=== PATIENT | female | born 1990 | race Caucasian/White ===

== ENCOUNTER 2016-11-05 21:02 | Emergency (ER) | payer BC, OTHER ==
[2016-11-05 21:46] VITALS: BP 94/73
[2016-11-05] MEDS ORDERED: Cephalexin CAP* 500 MG PO ONE (22:57)
[2016-11-05] MEDS ORDERED: Ibuprofen TAB* 600 MG PO ONE (22:58)
[2016-11-05] MEDS ORDERED: HYDROcodone/ACETAMIN 5-325 MG* 1 TAB PO ONE (22:59)
--- NOTE | 2016-11-05 23:06 | UC ---
Skin Complaint HPI - HPI Summary HPI Summary: 2 week history of recurrent abscess right upper inner thigh. Hx of I+ D of abscess one year ago, no hx of MRSA. Took a 1 week course of cephalexin without improvement. No drainage from wound. Not using analgesics because nothing works for her. - History of Current Complaint Chief Complaint: UCSkin Time Seen by Provider: 11/05/16 22:49 Stated Complaint: LEG ABSCESS Hx Obtained From: Patient Hx Last Menstrual Period: 10/28/16 Onset/Duration: Gradual Onset, Lasting Days - 14 Skin Exposure Onset/Duration: Weeks Ago Onset Severity: Moderate Current Severity: Moderate Pain Intensity: 10 Pain Scale Used: 0-10 Numeric Location: Discrete - right upper medial thigh Aggravating: Clothing, Touch Alleviating: Nothing Associated Signs & Symptoms: Positive: Negative Similar Episode/Dx as: abscess - Allergy/Home Medications Allergies/Adverse Reactions: Allergies Allergy/AdvReac Type Severity Reaction Status Date / Time Penicillins Allergy Severe Nausea And Verified 11/05/16 21:46 Vomiting Review of Systems Constitutional: Negative Skin: Other - forming abscess right upper inner thigh. Eyes: Negative ENT: Negative Respiratory: Negative Cardiovascular: Negative Gastrointestinal: Negative Genitourinary: Negative Motor: Negative Neurovascular: Negative Musculoskeletal: Negative Neurological: Negative Psychological: Other - angry All Other Systems Reviewed And Are Negative: Yes PMH/Surg Hx/FS Hx/Imm Hx Previously Healthy: Yes - obese Endocrine History Of: Denies: Diabetes, Thyroid Disease Cardiovascular History Of: Denies: Cardiac Disorders, Hypertension Respiratory History Of: Denies: COPD, Asthma GI/ History Of: Denies: Ulcer - Surgical History Surgical History: Yes Surgery Procedure, Year, and Place: Left Knee Arthroscopy, 2009 - Family History Known Family History: Positive: Other - declined to give family history. - Social History Occupation: Employed Full-time Lives: With Family Alcohol Use: None Substance Use Type: None Smoking Status (MU): Current Every Day Smoker Type: Cigarettes Amount Used/How Often: 1/2-1 PPD Length of Time of Smoking/Using Tobacco: 9 YRS Have You Smoked in the Last Year: Yes Physical Exam Triage Information Reviewed: Yes Appearance: Pain Distress - moderate., Obese Vital Signs: Initial Vital Signs Temp 98.5 F 11/05/16 21:40 Pulse 88 11/05/16 21:40 Resp 16 11/05/16 21:40 BP 94/73 11/05/16 21:40 Pulse Ox 100 11/05/16 21:40 Vital Signs Reviewed: Yes Respiratory Exam: Normal Cardiovascular Exam: Normal Psychological Exam: Other - irritable and angry. Insisted that she should have I +D tonight, when the area is not fluctuant and ready for drainage. Has overlying cellulitis. Skin Exam: Other - 10 x 8 cm of erythema with firm nodular feeling. Deep abscess with overlying erythema. No pointing. Advised not ready for I+D at this time. Course/Dx - Course Course Of Treatment: advised antibiotics, analgesics, but left the department stating that she would find a second opinion. - Differential Diagnoses - Skin Complaint Differential Diagnoses: Abscess, Cellulitis - Diagnoses Provider Diagnoses: cellulitis and abscess. Discharge - Discharge Plan Condition: Stable Disposition: AGAINST MEDICAL ADVICE
== END 2016-11-05 23:05 | disposition left against medical advice (07) ==
LOC: UCCORT 21:02
DX: L02.415 Cutaneous abscess of right lower limb (principal); L03.115 Cellulitis of right lower limb; Z88.0 Allergy status to penicillin; F17.210 Nicotine dependence, cigarettes, uncomplicated
CPT/HCPCS: 99212; G0463

== ENCOUNTER 2017-02-01 15:18 | Emergency (ER) | payer BC, OTHER ==
[2017-02-01 15:46] VITALS: BP 113/64
[2017-02-01] MEDS ORDERED: Ibuprofen TAB* 400 MG PO ONE (16:20)
--- NOTE | 2017-02-01 16:27 | ED ---
Lower Extremity - HPI Summary HPI Summary: Pt here w/ Lt ankle injury prior to arrival. Was walking downstairs, using her phone, when she tripped and twisted her ankle. Has acute swelling and bruising over the lateral aspect now. Pain w/ movement of ankle and cannot weight bear. Denies numbness, tingling, weakness. Denies knee pain, foot pain, toe pain. She did not fall and hit other areas of her body, including head. Has not taken anything yet for her pain. - History of Current Complaint Chief Complaint: UCLowerExtremity Stated Complaint: LEFT ANKLE PAIN Time Seen by Provider: 02/01/17 15:45 Hx Obtained From: Patient Hx Last Menstrual Period: pt states having and IUD LM: - Allergies/Home Medications Allergies/Adverse Reactions: Allergies Allergy/AdvReac Type Severity Reaction Status Date / Time Penicillins Allergy Intermediate Nausea And Verified 02/01/17 15:46 Vomiting PMH/Surg Hx/FS Hx/Imm Hx Previously Healthy: Yes Endocrine/Hematology History: Denies: Hx Anticoagulant Therapy, Hx Blood Disorders, Hx Diabetes, Hx Thyroid Disease, Hx Unexplained Bleeding Cardiovascular History: Denies: Hx Hypertension Respiratory History: Denies: Hx Asthma, Hx Chronic Obstructive Pulmonary Disease (COPD) GI History: Denies: Hx Ulcer History: Reports: Other Problems/Disorders - abnormal periods (menorrhagia ) - "bleeding past 30 days" - has IUD in place - Surgical History Surgery Procedure, Year, and Place: Left Knee Arthroscopy, 2009 Infectious Disease History: No Infectious Disease History: Denies: Hx Hepatitis, Hx Human Immunodeficiency Virus (HIV), History Other Infectious Disease, Traveled Outside the [place] in Last 30 Days - Family History Known Family History: Positive: Other - GM w/ endometrial CA - Social History Occupation: Employed Full-time - Chemist Food at [employer] Lives: With Family Alcohol Use: None Hx Substance Use: No Substance Use Type: Reports: None Smoking Status (MU): Current Every Day Smoker Type: Cigarettes Amount Used/How Often: 1 PPD Length of Time of Smoking/Using Tobacco: since age 18 Have You Smoked in the Last Year: Yes Review of Systems Negative: Chest Pain Negative: Shortness Of Breath Negative: Abdominal Pain Positive: no symptoms reported Musculoskeletal: Other - see HPI Positive: Bruising - see HPI Neurological: Negative Psychological: Normal All Other Systems Reviewed And Are Negative: Yes Physical Exam Triage Information Reviewed: Yes Vital Signs On Initial Exam: Initial Vitals Temp Pulse Resp BP Pulse Ox 98.9 F 88 20 113/64 100 02/01/17 15:40 02/01/17 15:40 02/01/17 15:40 02/01/17 15:40 02/01/17 15:40 Vital Signs Reviewed: Yes Appearance: Positive: Well-Appearing, No Pain Distress, Well-Nourished Skin: Positive: Warm, Dry - precious edema w/ superficial abrasion, ecchymosis over Lt lateral ankle Head/Face: Positive: Normal Head/Face Inspection Eyes: Positive: Normal, EOMI ENT: Positive: Hearing grossly normal, Pharynx normal Respiratory/Lung Sounds: Positive: Breath Sounds Present Cardiovascular: Positive: Normal, Pulses are Symmetrical in both Upper and Lower Extremities Musculoskeletal: Positive: Pain @ - Lt lateral area of edema is TTP - MT's, tibia/fibula, knees and toes are NTTP; can move toes and knee w/o difficulty; can plantar flex w/o pain, worse w/ inversion and dorsiflexion Neurological: Positive: Normal, Sensory/Motor Intact, Alert, Oriented to Person Place, Time, CN Intact II-III Psychiatric: Positive: Normal Diagnostics - Vital Signs Vital Signs Temp Pulse Resp BP Pulse Ox 02/01/17 15:40 98.9 F 88 20 113/64 100 - Laboratory Lab Statement: Any lab studies that have been ordered have been reviewed, and results considered in the medical decision making process. Lower Extremity Course/Dx - Diagnoses Provider Diagnoses: Left ankle sprain Discharge - Discharge Plan Condition: Stable Disposition: HOME Patient Education Materials: Ankle Sprain (ED), Ankle Stirrup Splint (ED), Crutch Instructions (ED) Forms: *Work Release Referrals: Oli TAMAYO,Phuong Vincent [Primary Care Provider] - Additional Instructions: Rest, ice, elevate and compress with MILLER wrap. Use crutches to avoid weight bearing - may advance as tolerated May continue ibuprofen with food as needed for pain and swelling Follow-up with PCP if symptoms persist.
--- NOTE | 2017-02-01 16:48 | RAD ---
HISTORY: Left ankle injury, pain COMPARISONS: None VIEWS: 3, Frontal, lateral, and oblique views of the left ankle FINDINGS: BONE DENSITY: Normal. BONES: There is no displaced fracture. There are small calcaneal enthesophytes JOINTS: There is no arthropathy. ALIGNMENT: There is no dislocation. SOFT TISSUES: There is circumferential soft tissue swelling OTHER FINDINGS: None. IMPRESSION: SOFT TISSUE SWELLING. NO ACUTE OSSEOUS INJURY. IF SYMPTOMS PERSIST, RECOMMEND REPEAT IMAGING.
== END 2017-02-01 17:37 | disposition home or self-care (01) ==
LOC: UCCORT 15:18
DX: S93.402A Sprain of unspecified ligament of left ankle, initial encounter (principal); X50.1XXA Overexertion from prolonged static or awkward postures, initial encounter; Y93.9 Activity, unspecified; Y92.9 Unspecified place or not applicable; Z88.0 Allergy status to penicillin; F17.210 Nicotine dependence, cigarettes, uncomplicated
CPT/HCPCS: 99213; A9270-GY; G0463

== ENCOUNTER 2017-06-28 09:30 | Emergency (ER) | payer BC, OTHER ==
[2017-06-28 09:57] VITALS: BP 104/66
--- NOTE | 2017-06-28 10:48 | UC ---
Skin Complaint HPI - History of Current Complaint Chief Complaint: UCSkin Time Seen by Provider: 06/28/17 10:10 Stated Complaint: LEFT LEG SKIN COMPLAINT Hx Last Menstrual Period: 06/21/17 - Allergy/Home Medications Allergies/Adverse Reactions: Allergies Allergy/AdvReac Type Severity Reaction Status Date / Time Penicillins Allergy Intermediate Nausea And Verified 06/28/17 09:59 Vomiting Home Medications: Home Medications Ibuprofen TAB* [Motrin TAB* 800 MG] 800 mg PO ONCE PRN 06/28/17 [History Confirmed 06/28/17] PMH/Surg Hx/FS Hx/Imm Hx Other History Of: Negative For: Anticoagulant Therapy - Surgical History Surgical History: Yes Surgery Procedure, Year, and Place: Left Knee Arthroscopy, 2009 - Family History Known Family History: Positive: Other - GM w/ endometrial CA - Social History Alcohol Use: None Substance Use Type: None Smoking Status (MU): Heavy Every Day Tobacco Smoker Type: Cigarettes Amount Used/How Often: 1 PPD Length of Time of Smoking/Using Tobacco: since age 18 Have You Smoked in the Last Year: Yes Physical Exam Vital Signs: Initial Vital Signs Temp 98.6 F 06/28/17 09:45 Pulse 84 06/28/17 09:45 Resp 20 06/28/17 09:45 BP 104/66 06/28/17 09:45 Course/Dx - Course Course Of Treatment: hx obtained, exam performed meds reviewed, I and D of left thigh abcess. changes ABX to doxycyline and packed wound, recommend follow up in 2 days. - Differential Diagnoses - Skin Complaint Differential Diagnoses: Abscess - Diagnoses Provider Diagnoses: hidradentitis supporitiva Discharge - Discharge Plan Condition: Stable Disposition: HOME Prescriptions: DOXYcycline CAP(*) [DOXYcycline 100MG CAP(*)] 100 mg PO BID #28 cap Patient Education Materials: Hidradenitis Suppurativa (ED) Forms: *Work Release Additional Instructions: 1. stop the keflex start the doxycyline for 2 weeks 2. Follow up with your doctor or here is 2 days to make sure that the wound is improving. 3. MOnitor for fever 4. Wound culture was obtained, results take 2-3 days 5. I am giving you a referral to a soybean grower for this reoccuring issue. 6. Ibupforen for pain and fever
== END 2017-06-28 10:53 | disposition home or self-care (01) ==
LOC: UCCORT 09:30
DX: L73.2 Hidradenitis suppurativa (principal)
CPT/HCPCS: 10060; 87070; 87076; 87077; 87186; 87205; 87640; 87641; 99212; G0463

== ENCOUNTER 2018-11-17 09:15 | Emergency (ER) | payer BC, OTHER ==
[2018-11-17] MEDS ORDERED: EPINEPHRINE 1 MG/ML 1 ML VIAL IM ONE (09:18)
[2018-11-17] MEDS ORDERED: methylPREDNISolone 125 MG* 2 ML VIAL IV ONE (09:20)
[2018-11-17] MEDS ORDERED: Famotidine IV* 10 MG/ML 2 ML (20 mg) IV SLOW PU ONE (09:20)
[2018-11-17] MEDS ORDERED: diPHENhydraMINE IV* 50 MG/ML 1 ml VIAL (BENADRYL) IV ONE (09:21)
--- NOTE | 2018-11-17 09:27 | UC ---
Allergic Reaction HPI - HPI Summary HPI Summary: 28-year-old woman comes in with a chief complaint of allergic reaction difficulty breathing. Started having some rash last night this morning of having a lot worse having a hard time breathing she comes in to clinic in respiratory extremis. - History of Current Complaint Stated Complaint: TROUBLE BREATHING Time Seen by Provider: 11/17/18 09:18 Hx Last Menstrual Period: 06/21/17 - Allergies/Home Medications Allergies/Adverse Reactions: Allergies Allergy/AdvReac Type Severity Reaction Status Date / Time MS Penicillins [Penicillins] Allergy Intermediate Nausea And Verified 11/17/18 09:31 Vomiting PMH/Surg Hx/FS Hx/Imm Hx Previously Healthy: Yes Other History Of: Negative For: Anticoagulant Therapy - Surgical History Surgical History: Yes Surgery Procedure, Year, and Place: Left Knee Arthroscopy, 2009 - Family History Known Family History: Positive: Other - GM w/ endometrial CA - Social History Alcohol Use: None Substance Use Type: None Smoking Status (MU): Heavy Every Day Tobacco Smoker Type: Cigarettes Amount Used/How Often: 1 PPD Length of Time of Smoking/Using Tobacco: since age 18 Have You Smoked in the Last Year: Yes Review of Systems All Other Systems Reviewed And Are Negative: Yes Constitutional: Positive: Other - SEE HPI Skin: Positive: Rash - DIFFUSE HIVES Eyes: Positive: Negative ENT: Positive: Negative Respiratory: Positive: Shortness Of Breath Cardiovascular: Positive: Negative Gastrointestinal: Positive: Negative Motor: Positive: Negative Neurovascular: Positive: Negative Musculoskeletal: Positive: Negative Neurological: Positive: Negative Psychological: Positive: Negative Is Patient Immunocompromised?: No Physical Exam Triage Information Reviewed: Yes Appearance: Well-Nourished, Ill-Appearing - RESPIRATORY EXTREMIS Vital Signs Reviewed: Yes Eye Exam: Normal Eyes: Positive: Conjunctiva Clear ENT: Positive: Pharyngeal erythema, Nasal congestion Neck exam: Normal Neck: Positive: Supple Respiratory: Positive: Other: - RAPID BREATHING, GOOD AIR FLOW Cardiovascular: Positive: Tachycardia Musculoskeletal Exam: Normal Musculoskeletal: Positive: Strength Intact, ROM Intact Neurological Exam: Normal Neurological: Positive: Alert, Muscle Tone Normal Psychological Exam: Normal Psychological: Positive: Age Appropriate Behavior Skin: Positive: Rashes - DIFFUSE ERYTHEMA Allergic Reaction Course/Dx - Course Course Of Treatment: Upon initial presentation to clinic patient appeared to be having allergic reaction. Patient was given IM epinephrine and IV Benadryl Pepcid and Solu-Medrol. Patient found have a fever. She's been sick for about a week. The cause of the rash and difficulty breathing Maalox he be infection rather than allergic reaction. Due to the severity of the illness patient is transferred to the emergency department by ambulance. - Differential Dx/Diagnosis Provider Diagnosis: Respiratory distress, Rash, Fever Discharge - Sign-Out/Discharge Documenting (check all that apply): Patient Departure All imaging exams completed and their final reports reviewed: No Studies - Discharge Plan Condition: Stable Disposition: TRANS HIGHER LVL OF CARE FAC Referrals: Oli TAMAYO,Phuong Vincent [Primary Care Provider] - - Billing Disposition and Condition Condition: STABLE Disposition: Trans Higher Lvl of Care Fac
[2018-11-17] MEDS ORDERED: NS 0.9% 1000 ML** 1,000 ML IV ONE (09:28)
[2018-11-17 09:43] VITALS: BP 126/82
== END 2018-11-17 09:40 | disposition short-term general hospital (02) ==
LOC: UCEAST 09:15
DX: R21 Rash and other nonspecific skin eruption (principal); R50.9 Fever, unspecified; R06.03 Acute respiratory distress; F17.210 Nicotine dependence, cigarettes, uncomplicated; Z88.0 Allergy status to penicillin
CPT/HCPCS: 99203; G0463; J1200; J2930

== ENCOUNTER 2018-11-17 09:59 | Emergency (ER) | payer SELFPAY ==
[2018-11-17] MEDS ORDERED: Ketorolac INJ* 30 MG/ML 1 ML VIAL IV PUSH ONE (10:10)
[2018-11-17] MEDS ORDERED: Albuterol/Ipratropium NEB.SOL* Albuterol 2.5 MG/Ipratropium 0.5 MG 3 ML INH ONE (10:10)
[2018-11-17] MEDS ORDERED: NS 0.9% 1000 ML** 1,000 ML IV ONE (10:10)
[2018-11-17] MEDS ORDERED: DiMENhydriNATE IV* 50 MG/ML VIAL IV PUSH ONE (10:11)
[2018-11-17] MEDS ORDERED: Acetaminophen TAB* 325 MG PO ONE (10:11)
--- NOTE | 2018-11-17 10:15 | ED ---
Influenza-Like Illness - HPI Summary HPI Summary: 28-year-old otherwise healthy female presents with flushing/rash that began this morning as well as cough, congestion, sore throat. Patient was diagnosed with influenza type a approximately 1 week ago was not treated with any medications. She did not receive the vaccine. She is a former smoker having quit only 2 weeks ago. She reports wheezing and tightness in her chest today as well. She was noted to have fever on arrival here. Her 5-year-old daughter is also similarly ill. She denies any urinary symptoms, vaginal discharge, any new foreign bodies. She has an intrauterine device and does not get her period with it. She has no history of asthma or COPD. - History of Current Complaint Chief Complaint: EDAllergicReaction Time Seen by Provider: 11/17/18 10:05 Hx Obtained From: Patient - Allergy/Home Medications Allergies/Adverse Reactions: Allergies Allergy/AdvReac Type Severity Reaction Status Date / Time MS Penicillins [Penicillins] Allergy Intermediate Nausea And Verified 11/17/18 09:31 Vomiting PMH/Surg Hx/FS Hx/Imm Hx Previously Healthy: Yes - diagnosed influenza a within the week Endocrine/Hematology History: Denies: Hx Anticoagulant Therapy, Hx Blood Disorders, Hx Diabetes, Hx Thyroid Disease, Hx Unexplained Bleeding Cardiovascular History: Denies: Hx Hypertension Respiratory History: Denies: Hx Asthma, Hx Chronic Obstructive Pulmonary Disease (COPD) GI History: Denies: Hx Ulcer History: Reports: Other Problems/Disorders - abnormal periods (menorrhagia ) - "bleeding past 30 days" - has IUD in place - Surgical History Surgery Procedure, Year, and Place: Left Knee Arthroscopy, 2009 Infectious Disease History: Yes - known influenza A Infectious Disease History: Denies: Hx Hepatitis, Hx Human Immunodeficiency Virus (HIV), History Other Infectious Disease, Traveled Outside the [place] in Last 30 Days - Family History Known Family History: Positive: Other - GM w/ endometrial CA; daughter with influenza - Social History Lives: With Family Alcohol Use: None Hx Substance Use: No Substance Use Type: Reports: None Smoking Status (MU): Heavy Every Day Tobacco Smoker Type: Cigarettes Amount Used/How Often: 1 PPD Length of Time of Smoking/Using Tobacco: since age 18 Have You Smoked in the Last Year: Yes Review of Systems Positive: Fever, Chills Positive: Sore Throat, Nasal Discharge Positive: Other - chest tightness Positive: Shortness Of Breath, Cough Gastrointestinal: Negative Negative: dysuria, discharge, frequency, hematuria Positive: Myalgia Positive: Rash All Other Systems Reviewed And Are Negative: Yes Physical Exam Triage Information Reviewed: Yes Vital Signs On Initial Exam: Initial Vitals Temp Pulse Resp BP Pulse Ox 100 F 113 24 130/78 95 11/17/18 10:02 11/17/18 10:02 11/17/18 10:02 11/17/18 10:02 11/17/18 10:02 Vital Signs Reviewed: Yes Appearance: Positive: No Pain Distress, Well-Nourished, Ill-Appearing Skin: Positive: Dry, Other Eyes: Positive: Normal, EOMI ENT: Positive: Nasal congestion, Nasal drainage, TMs normal. Negative: Sinus tenderness Neck: Positive: Supple, Nontender Respiratory/Lung Sounds: Positive: Wheezes. Negative: Rales, Rhonchi Cardiovascular: Positive: Tachycardia Abdomen Description: Positive: Nontender, Soft Musculoskeletal: Positive: Normal, Strength/ROM Intact Neurological: Positive: Normal, Sensory/Motor Intact, Alert, Oriented to Person Place, Time Psychiatric: Positive: Normal AVPU Assessment: Alert Diagnostics - Vital Signs Vital Signs Temp Pulse Resp BP Pulse Ox 11/17/18 10:02 100 F 113 24 130/78 95 - Laboratory Lab Statement: Any lab studies that have been ordered have been reviewed, and results considered in the medical decision making process. - Radiology cxr Radiology Interpretation Completed By: Radiologist - Some findings of obstructive lung disease but no other acute inflammatory process Re-Evaluation - Re-Evaluation First Eval Re-Evaluation Time: 11:45 Change: Improved Comment: Subjectively better but still has some wheezes in the bases. Given saline nebulizer and additional dexamethasone. Flu Symptom Course/Dx - Course Course Of Treatment: Nurse's notes reviewed. Patient with skin erythema without urticaria. Known influenza A with reactive process in the lungs without history of asthma. Given fluids, steroids, breathing treatments and Benadryl with subjective improvement. No desaturation. Continue similar outpatient. - Diagnoses Differential Diagnosis/HQI/PQRI: Positive: Influenza, Other - Allergic reaction , medication reaction, toxic shock Provider Diagnoses: Influenza A, Reactive airway disease with wheezing Discharge - Sign-Out/Discharge Documenting (check all that apply): Patient Departure Patient Received Moderate/Deep Sedation with Procedure: No - Discharge Plan Condition: Improved Disposition: HOME Prescriptions: Albuterol HFA INHALER* [Ventolin HFA Inhaler*] 2 puff INH Q4H PRN #1 mdi PRN Reason: Sob/Wheezing Dexamethasone TAB* [Decadron TAB*] 8 mg PO DAILY #8 tab Guaifenesin/Pseudo 600/60(NF) [Mucinex D 600/60 (NF)] 1 tab PO Q12H PRN #10 tab PRN Reason: Congestion Patient Education Materials: Influenza (ED), Reactive Airways Disease (ED) Forms: *Work Release Referrals: Oli TAMAYO,Phuong Vincent [Primary Care Provider] - Additional Instructions: Humidifier while sleeping. Tylenol, ibuprofen for fever or body aches. Albuterol as needed for wheezing. Drink plenty of fluids, vitamin C may help. Return if worse, difficulty breathing, new symptoms or other concerns. - Billing Disposition and Condition Condition: IMPROVED Disposition: Home - Attestation Statements Document Initiated by Scribe: No
[2018-11-17] MEDS ORDERED: Dexamethasone IV* 4 MG/ML 5 ML VIAL (20 MG) IVPB ONE (11:40)
[2018-11-17 13:00] VITALS: BP 119/68
== END 2018-11-17 13:06 | disposition home or self-care (01) ==
LOC: ED 09:59
DX: J10.1 Influenza due to other identified influenza virus with other respiratory manifestations (principal); J45.909 Unspecified asthma, uncomplicated; F17.210 Nicotine dependence, cigarettes, uncomplicated; Z97.5 Presence of (intrauterine) contraceptive device
CPT/HCPCS: 71046; 96361; 96374; 96375; 99282; A9270-GY; J1100; J1240; J1885

== ENCOUNTER 2019-07-10 09:02 | Emergency (ER) | payer OTHER ==
[2019-07-10 09:15] VITALS: BP 117/76
--- NOTE | 2019-07-10 09:31 | UC ---
Respiratory Complaint HPI - HPI Summary HPI Summary: For the last 2 days she has had fevers that have been difficult to control with Tylenol, upper respiratory symptoms and diffuse myalgias and arthralgias. Her daughter was diagnosed recently with influenza and is being treated. She last took Tylenol about 2 hours ago - History of Current Complaint Chief Complaint: UCGeneralIllness Stated Complaint: FLU SYMPTOMS Time Seen by Provider: 07/10/19 09:20 Hx Last Menstrual Period: 06/21/17 Pain Intensity: 2 - Allergies/Home Medications Allergies/Adverse Reactions: Allergies Allergy/AdvReac Type Severity Reaction Status Date / Time Penicillins Allergy Severe Swelling Verified 07/10/19 09:15 Of Face,Lips,& Throat Home Medications: Home Medications Acetaminophen ADULT LIQ* [Tylenol ADULT LIQ*] 650 mg PO Q4H PRN 07/10/19 [ History Confirmed 07/10/19] PMH/Surg Hx/FS Hx/Imm Hx Other History Of: Negative For: Anticoagulant Therapy - Surgical History Surgical History: Yes Surgery Procedure, Year, and Place: Left Knee Arthroscopy, 2009 - Family History Known Family History: Positive: Other - GM w/ endometrial CA; daughter with influenza - Social History Alcohol Use: None Substance Use Type: None Smoking Status (MU): Heavy Every Day Tobacco Smoker Type: Cigarettes Amount Used/How Often: 1 PPD Length of Time of Smoking/Using Tobacco: since age 18 Have You Smoked in the Last Year: Yes Review of Systems All Other Systems Reviewed And Are Negative: Yes Constitutional: Positive: Fever, Chills Skin: Positive: Negative Eyes: Positive: Negative ENT: Positive: Nasal Discharge, Sinus Congestion Respiratory: Positive: Negative Cardiovascular: Positive: Negative Gastrointestinal: Positive: Negative Genitourinary: Positive: Negative Motor: Positive: Negative Neurovascular: Positive: Negative Musculoskeletal: Positive: Arthralgia, Myalgia Neurological: Positive: Negative Physical Exam - Summary Physical Exam Summary: She is nontoxic in appearance with stable vital signs Triage Information Reviewed: Yes Appearance: Well-Appearing Vital Signs: Initial Vital Signs Temp 98.9 F 07/10/19 09:11 Pulse 83 07/10/19 09:11 Resp 18 07/10/19 09:11 BP 117/76 07/10/19 09:11 Pulse Ox 99 07/10/19 09:11 Vital Signs Reviewed: Yes Neck exam: Normal Neck: Positive: Supple, Nontender, No Lymphadenopathy Respiratory: Positive: Chest non-tender, Lungs clear, No respiratory distress, No accessory muscle use Cardiovascular: Positive: RRR, No Murmur Abdomen Description: Positive: Nontender Neurological Exam: Normal Respiratory Course/Dx - Course Course Of Treatment: Given the circumstances, even though her flu swab was negative I'm going to treat her. - Differential Dx/Diagnosis Provider Diagnosis: Influenza Discharge ED - Sign-Out/Discharge Documenting (check all that apply): Patient Departure All imaging exams completed and their final reports reviewed: No Studies - Discharge Plan Condition: Stable Disposition: HOME Patient Education Materials: Influenza (ED) Referrals: No Primary Care Phys,NOPCP [Primary Care Provider] - [facility] [Outside] - Billing Disposition and Condition Condition: STABLE Disposition: Home
[2019-07-10 09:43] LABS: Influenza A Molecular NEGATIVE (Negative); Influenza B Molecular NEGATIVE (Negative)
== END 2019-07-10 10:06 | disposition home or self-care (01) ==
LOC: UCEAST 09:02
DX: J11.1 Influenza due to unidentified influenza virus with other respiratory manifestations (principal); F17.210 Nicotine dependence, cigarettes, uncomplicated; Z88.0 Allergy status to penicillin
CPT/HCPCS: 99212; G0463

== ENCOUNTER 2019-09-01 06:42 | Day surgery (SDC) | payer OTHER ==
--- NOTE | 2019-08-29 13:51 | HP ---
PREOPERATIVE HISTORY AND PHYSICAL: DATE OF ADMISSION/SURGERY: 09/01/19 ATTENDING SURGEON: Dr. Pj Monahan.* (DICTATED BY JENNIFER LUNA) PROCEDURE: Left knee arthroscopic surgery with medial patellofemoral ligament reconstruction with allograft. CHIEF COMPLAINT: Left knee pain. HISTORY OF PRESENT ILLNESS: Jennifer is a 29-year-old female, who presents to the clinic for left knee patellar instability. She has dislocated it multiple times and has failed conservative measures; therefore, she has agreed to undergo a left knee arthroscopic surgery with medial patellofemoral ligament reconstruction with allograft with Dr. Monahan on 09/01/19. PAST MEDICAL HISTORY: Crohn's. PAST SURGICAL HISTORY: Left knee scope. The patient denies prior complications with anesthesia. MEDICATIONS: No active medications. ALLERGIES: To PENICILLIN. FAMILY HISTORY: Positive for hypertension, cancer, and RA. Denies family history of DVT or PE. SOCIAL HISTORY: She lives with her spouse. She is a medical administrative. She just quit smoking. She denies alcohol consumption. She exercises regularly. She is right- hand dominant. REVIEW OF SYSTEMS: A 14-point review of systems was reviewed with the patient. Positive for current complaint, otherwise negative. Denies fever, chills, chest pain, shortness of breath, history of bleeding disorder, history of DVT or PE. PHYSICAL EXAMINATION GENERAL: A 29-year-old well-developed, well-nourished female, in no acute distress. VITAL SIGNS: Height 62, weight 190, pulse 56, blood pressure 118/70, respiratory rate 16, BMI 34.7. HEENT: Normocephalic, atraumatic. PERRLA. Throat clear. NECK: Supple. PULMONARY: Lungs are clear to auscultation bilaterally. No wheezing, rhonchi, or rales. CARDIO: Regular rate and rhythm. S1, S2. No murmurs, gallops, or rubs. No edema. ABDOMEN: Positive bowel sounds. Soft, nontender. NEURO: Alert and oriented x3. Cranial nerves grossly intact. MUSCULOSKELETAL: Left lower extremity: Skin is intact. No warmth or erythema. Positive patellar apprehension, +3 lateral glide of patella, valgus alignment of the knee. Range of motion 0 to 130. Stable to varus and valgus stress. Stable Dillon. Negative posterior drawer. Calf soft, nontender. +2 DP pulse. Sensation intact to light touch distally. 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 IMPRESSION: Left knee patellar instability. PLAN: The patient is scheduled to undergo a left knee arthroscopic surgery with medial patellofemoral ligament reconstruction with allograft with Dr. Monahan on 09/01/19. She will follow up 10 to 14 days postop for followup and suture removal. Percocet will be used for postop pain management and Keflex for antibiotic prophylaxis. JENNIFER LUNA [id number]/[facility] #: [id number] MTDDarleen
[~2019-09-01 06:42] MED LIST: Dexamethasone TAB* 4 MG PO ONE; DiMENhydriNATE IV* 50 MG/ML VIAL IV PUSH PRN; Famotidine IV* 10 MG/ML 2 ML (20 mg) IV ONE; HYDROmorphone INJ1* 1 MG/ML SYRINGE IV PRN; Lactated Ringers 1000 ML Bag* 1,000 ML IV SCH; Naloxone* 0.4 MG/ML 1 ML VIAL IV PRN; Ondansetron ODT TAB* 4 MG PO ONE; PROCHLORPERAZINE INJ 5 MG/ML 2 ML VIAL IV PRN; Scopolamine 1.5 mg* PATCH TRANSDERM PRN
[2019-09-01] MEDS ORDERED: Famotidine IV* 10 MG/ML 2 ML (20 mg) ONE (06:59)
[2019-09-01] MEDS ORDERED: Ondansetron ODT TAB* 4 MG ONE (06:59)
[2019-09-01] MEDS ORDERED: ceFAZolin 2 GM in NS PREMIX(*) 2 GM/100 ML BAG IVPB ONE (06:59)
[2019-09-01] MEDS ORDERED: Buffered Lidocaine 1% SYRIN* 1 ML/SYRINGE INTRADERM ONE ×2 (06:59→11:07)
[2019-09-01] MEDS ORDERED: Dexamethasone TAB* 4 MG ONE (06:59)
[2019-09-01] MEDS ORDERED: Acetaminophen IV 1GM/100ML * 100 ML ONE (07:38)
[2019-09-01] MEDS ORDERED: fentaNYL* 50 MCG/ML 2 ML VIAL (100 MCG VIAL) ONE ×2 (08:00→11:48)
[2019-09-01] MEDS ORDERED: KETAMINE HCL* 50 MG/ML 10 ML VIAL ONE (08:01)
[2019-09-01] MEDS ORDERED: Midazolam* 1 MG/ML 5 ML VIAL (5 MG) ONE (08:01)
[2019-09-01] MEDS ORDERED: Bupivacaine 0.25% EPI 200,000* 30 ML SDV ONE (09:04)
[2019-09-01] MEDS ORDERED: Ropivacaine 0.2% * 2 MG/ML VIAL ONE (09:04)
[2019-09-01] MEDS ORDERED: Lidocaine 1% w EPI 1:100,000* MDV 20 ML VIAL ONE (09:50)
[2019-09-01] MEDS ORDERED: HYDROmorphone INJ1* 1 MG/ML SYRINGE ONE (09:57)
[2019-09-01] MEDS ORDERED: Propofol* 10 MG/ML 20 ML BTL ONE (10:08)
[2019-09-01] MEDS ORDERED: EPHEDrine (Pressors)* 50 MG/ML VIAL ONE (10:08)
[2019-09-01] MEDS ORDERED: PROCHLORPERAZINE INJ 5 MG/ML 2 ML VIAL ONE (10:08)
[2019-09-01] MEDS ORDERED: Ketorolac INJ* 30 MG/ML 1 ML VIAL ONE (10:08)
[2019-09-01] MEDS ORDERED: Lidocaine 2% PF * 5 ML VIAL ONE (10:08)
[2019-09-01] MEDS: fentaNYL* 50 MCG/ML 2 ML VIAL (100 MCG VIAL) IV PRN ×3 (11:48→12:17)
[2019-09-01] MEDS ORDERED: oxyCODONE TAB* 5 MG TAB ONE ×2 (12:16→12:29)
[2019-09-01] MEDS: oxyCODONE TAB* 5 MG TAB PO PRN ×2 (12:18→12:30)
[2019-09-01 13:14] VITALS: BP 119/67
--- NOTE | 2019-09-01 15:43 | OP ---
CC: PCP* DATE OF OPERATION: 09/01/19 - [facility] DATE OF : [birth year] SURGEON: Pj Monahan MD BOOTH USHER: JENNIFER Dubose. An assistant cook was needed for the entirety of the case to help with positioning, retraction, and was utilized throughout all portions of the case. ANESTHESIOLOGIST: Dr. Uribe. ANESTHESIA: General. PRE-OP DIAGNOSIS: Left knee recurrent patellar instability. POST-OP DIAGNOSIS: Left knee recurrent patellar instability. OPERATIVE PROCEDURE: 1. Left knee arthroscopy with synovectomy. 2. Open medial patellofemoral ligament reconstruction with allograft. COMPLICATIONS: None. ESTIMATED BLOOD LOSS: Minimal. TOURNIQUET TIME: Zero minute. INDICATIONS: Jennifer West is a 29-year-old female with persistent left left knee patellar instability. She has failed conservative management. She has no evidence of patella fareed and a TTTG that is normal. She had a lateral release in the past by Dr. López in 2011 and has had persistent struggle. After extensive discussion of risks and benefits of operative versus nonoperative treatment, she has elected to proceed with surgical treatments. Risks included but not limited to bleeding, infection, damage to nerves, vessels, surrounding structures, wound nonhealing, persistent pain, need for surgery, scarring, stiffness, incomplete relief of symptoms; and risks of anesthesia. DESCRIPTION OF PROCEDURE: The patient was greeted in the preoperative area by the attending surgeon. Correct extremity was marked. Consent was confirmed. The patient was brought back to the operating suite. She was placed in the supine position on the operating table and then underwent general anesthesia with LMA intubation, after which an unsterile tourniquet was placed high on the proximal thigh. A beanbag was placed on the bed to keep the leg at 90 degrees when it was important. The left leg was then prepped and draped in the usual sterile fashion, beginning with chlorhexidine soap, scrub, and alcohol wipe, and a final prep with ChloraPrep. After appropriate surgical pause indicating site, side, procedure, administration of antibiotics, knee was intra-articularly injected with 1% lidocaine with epi. The anterolateral portal was made sharply with 11 blade. The scope was introduced into the joint. The joint was examined. The ACL was intact, had some mild fraying. There was abundant synovitis and plica that was present. The anteromedial portal was made in an outside-in fashion. The shaver was used to debride back the abundant synovitis about the prepatellar area, medial and lateral area and plica was excised. Patellofemoral joint was examined. There was evidence of subluxation laterally. The inferior pole of the patella had some mild wear grade 2 changes with no significant unstable flaps. The medial and lateral gutters were intact without any loose debris. The medial and lateral compartments were with grade 0 changes. Lateral meniscus and medial meniscus were intact. After the diagnostic portion was completed, attention was directed to the open portion. With the knee placed in approximately 30 degrees of flexion, an incision based on the superomedial aspect of the patella was made sharply with 15 blade. Sharp tissue carefully dissected to expose the peritenon. At this point, careful dissection was maintained and the layers of the knees were identified. Care was taken to try to preserve the third layer and not violate the capsule. The first 2 layers were identified and tagged and then a blunt device was then used to create a tunnel to the MPFL insertion site. A 15 blade was used to make a second medial incision far medial about the femur. The soft tissues were carefully exposed to expose the MPFL footprint. This was then confirmed by getting a perfect lateral. The starting point was then marked with an 18- gauge needle about just 2 mm anterior to the posterior aspect of the cortex and proximal Blumensaat line. Suprapubic position was identified. Q-Fix was then drilled unicortically and the Q-Fix was deployed with excellent purchase. The insertion site was then carefully rasped to allow for good bony bleeding bed. Once the passing sutures were then passed to facilitate graft passage, the graft which had been whipstitched tibialis anterior on the back table was then whip stitched on one end and then brought through to the table and then passed through the previously made tunnel. One suture strand from each set of sutures were then passed in a Krackow fashion running up and down the tendon and then the second suture was then passed as the pulling suture through the end of the tendon. This helped to secure and tack this tendon down. Once both sutures were secured and the graft was well positioned and was tested, the point of isometry was then determined with the lateral patella reduced at 0, 30 and 90 degrees. Once the appropriate amount of excursion was identified and the point of isometry was identified, this was marked on the tendon. A 3.5 Alex and Nephew metal anchor was then placed. First, the edge of the patella was decorticated gently to allow for bony bleeding bed and the anchor was placed between the junction of the proximal third and proximal middle two thirds of the patella. The anchor was placed with excellent purchase. With the knee in 30 degrees, the sutures were then passed through the tendons in appropriate fashion. These were then tied down in horizontal mattress configuration. The excess graft was then passed through a subperiosteal tunnel through the top of the patella and then secured with 0 Vicryl in interrupted fashion. The excess stump was excised. The knee was taken through full range of motion. There was evidence of good tracking, 0 to 1+ medial and lateral glide of the patella and good superior and inferior glide. The scope was then brought into the joint and the joint was examined. There was appropriate reduction of the patella. The graft did not compromise the joint space and the knee tracked appropriately. Final images were obtained. The wound was then copiously irrigated with sterile saline. The previously made fascial layer was then closed with #5 Ethibond and #2 Orthobraid to account for watertight seal. The wounds were then copiously irrigated. The skin was closed in layers with 3-0 Monocryl and subcutaneous and then running fashion about both medial wounds and then 3-0 nylon for the scope wounds. The wound was copiously irrigated. Sterile dressings were applied. 0.2% ropivacaine was injected about all the incisions and a small amount was injected into the joint. Sterile dressings were applied. A Cryo/Cuff and hinged knee brace locked at 0 was applied. She was awoken from anesthesia and transferred to the PACU in stable condition. POSTOPERATIVE PLAN: She will be toe touch weightbearing for the first 2 to 3 weeks. She will be range of motion 0 to 30. I will see the patient back in 10 to 14 days. She will be discharged on pain medication and antibiotics due to her recent surgery. DVT prophylaxis was considered but deferred due to no previous personal or family history. I will see the patient back in 10 to 14 days. [id number]/[facility] #: [id number] ANIBAL
[2019-09-04] MEDS ORDERED: Scopolamine PATCH Remove* 1 NOTE MISC PATCH OFF ONE (05:48)
== END 2019-09-01 13:20 | disposition home or self-care (01) ==
LOC: OR 06:42
PROVIDERS: ATTEND Orthopaedic Surgery
DX: M22.12 Recurrent subluxation of patella, left knee (principal); F17.211 Nicotine dependence, cigarettes, in remission
CPT/HCPCS: 76000; 81025; A9270-GY; C1713; C1776; J0690; J0780; J1170; J1885; J2250; J2704; J2795; J3010; J8540; L8699

== ENCOUNTER → 2019-11-21 09:39 | Day surgery (SDC) | payer OTHER ==
[~2019-11-21 09:39] MED LIST changes: +Acetaminophen TAB* 325 MG ONE; +Acetaminophen TAB* 325 MG PO PRN; +Buffered Lidocaine 1% SYRIN* 1 ML/SYRINGE INTRADERM ONE; +Bupivacaine 0.25% SDV* 30 ML ONE; +Clindamycin 900 MG/D5W BAG(*) 900 MG/50 ML BAG IVPB ONE; +Dexamethasone IV* 4 MG/ML 1 ML (4 MG) ONE; -Dexamethasone TAB* 4 MG PO ONE; -DiMENhydriNATE IV* 50 MG/ML VIAL IV PUSH PRN; -Famotidine IV* 10 MG/ML 2 ML (20 mg) IV ONE; +HYDROmorphone INJ1* 1 MG/ML SYRINGE ONE; +Ibuprofen TAB* 200 MG ONE; +Ibuprofen TAB* 400 MG PO PRN; -Lactated Ringers 1000 ML Bag* 1,000 ML IV SCH; +Lidocaine 2% PF * 5 ML VIAL ONE; +Midazolam* 1 MG/ML 2 ML VIAL (2 MG) ONE; +Ondansetron INJ* 2 MG/ML VIAL ONE; -Ondansetron ODT TAB* 4 MG PO ONE; -PROCHLORPERAZINE INJ 5 MG/ML 2 ML VIAL IV PRN; +Propofol* 10 MG/ML 20 ML BTL ONE; -Scopolamine 1.5 mg* PATCH TRANSDERM PRN; +fentaNYL* 50 MCG/ML 2 ML VIAL (100 MCG VIAL) ONE; +oxyCODONE TAB* 5 MG TAB ONE; +oxyCODONE TAB* 5 MG TAB PO PRN
[2019-11-21] MEDS: Lactated Ringers 1000 ML Bag* 1,000 ML IV SCH ×2 (10:09→13:45)
[2019-11-21] MEDS: HYDROmorphone INJ1* 1 MG/ML SYRINGE IV PRN ×3 (12:20→12:58)
[2019-11-21 15:23] VITALS: BP 110/56
--- NOTE | 2019-11-21 17:57 | OP ---
Operative Report - Blank - Operative Report Date of Operation: 11/21/19 Note: PATIENT: Jennifer West DATE OF : 1990 DATE OF SURGERY: 11/21/2019 SURGEON: Hector Foy MD RECAPPER: JENNIFER Colbert, whos assistance was necessary for positioning, retraction, help with instrumentation, and closure. ANESTHESIOLOGIST: Dr. Sánchez PREOPERATIVE DIAGNOSIS: Left knee pain and stiffness after prior surgery POSTOPERATIVE DIAGNOSIS: Left knee pain and stiffness after prior surgery with adhesion formation OPERATION: 1. Left knee aspiration 2. Left knee arthroscopy with lysis of adhesions and synovectomy. 3. Left knee manipulation under anesthesia. ANESTHESIA: General IMPLANTS: none TOURNIQUET TIME: Less than one hour, with a well-padded thigh tourniquet at 250 mmHg. SPECIMENS: None ESTIMATED BLOOD LOSS: minimal COMPLICATIONS: none STATUS: Stable from the operating room to the recovery room and then home. INDICATIONS FOR PROCEDURE: Jennifer has had 2 prior surgeries on her left knee for patellar instability. Years ago she had a lateral retinacular release, and recently she had an MPFL reconstruction. She has continued to have pain, but her main complaint is actually stiffness. She did have some labs done which were mildly abnormal. Therefore, we discussed performing an aspiration of the knee and then a knee arthroscopy and manipulation to try and improve her pain and range of motion. Both operative and non operative treatment alternatives were reviewed. Further, the nature and risks of surgery were reviewed in careful detail, in the office as well as the pre-operative holding area. Our discussions regarding the risks of surgery included, but were not limited to, infection, wound problems, nerve injury, neuroma, RSD, persistent symptoms, blood clot, failure of the surgery, need for further surgery, development of arthritis, and even the remote chance of catastrophic complication. DESCRIPTION OF PROCEDURE: The patient was seen in the preoperative holding unit and informed written consent was obtained. The appropriate extremity was marked. The patient was then brought to the operating room and carefully positioned on the operating room table. Anesthesia was induced. All bony prominences were padded with great care. A well-padded thigh tourniquet was placed. A chlorhexidine based pre- scrub was performed followed by a chloraprep prep and drape in standard sterile fashion. A surgical safety pause was then conducted in which we confirmed the appropriate patient, extremity, planned procedure, availability of equipment, indication and administration of prophylactic antibiotics, and DVT prophylaxis in the form of a compression boot on the non-surgical extremity. I began by performing an aspiration of the left knee with a superior O meniscus approach at the patella. An 18-gauge needle was used. 2 cc of normal- appearing synovial fluid was obtained. This was sent to the lab for cultures. I then performed an Esmarch exsanguination of the limb and inflated the tourniquet. I insufflated the joint by injecting sterile saline. I began by making a standard anterolateral knee arthroscopy portal. The arthroscope was inserted into the knee joint and a diagnostic arthroscopy was performed. There was some wear of the cartilage at the medial facet of the patella, otherwise cartilage throughout the knee looked quite good. No meniscal tears were appreciated. The ACL was intact. There was quite a bit of synovitis in the suprapatellar pouch, as well as in the anterior knee. There were some bands of adhesions along the medial patellar retinaculum and in the suprapatellar pouch. Then under direct visualization an anteromedial arthroscopy portal was made. An oscillating shaver were used to debride the synovitis and adhesions. I then performed an extensive irrigation of the joint while running the shaver in each of the knee compartments to remove any loose debris. Once thoroughly irrigated and debrided, I suctioned the fluid out of the joint. The arthroscopy portals were then closed utilizing 3-0 nylon. I then performed a manipulation of the knee under anesthesia, and was able to obtain 140 of flexion. Full extension was also obtained. A sterile dressing was then applied. The patient was then awakened from anesthesia and transferred to the recovery room in stable condition. There were no complications. All needle and sponge counts were correct at the end of the case. ATTESTATION: I attest I was present and scrubbed and performed the critical portions of the procedure myself. POSTOPERATIVE PLAN: The plan is for weight-bearing as tolerated with crutches. She will immediately start physical therapy to maintain her range of motion. Follow-up will be in 2 weeks for likely suture removal.
== END | disposition home or self-care (01) ==
LOC: OR 09:39
PROVIDERS: ATTEND Orthopaedic Surgery
DX: M24.662 Ankylosis, left knee (principal); M19.90 Unspecified osteoarthritis, unspecified site; F17.210 Nicotine dependence, cigarettes, uncomplicated
CPT/HCPCS: 81025; 87070; 87073; 87205; A9270-GY; J1100; J1170; J2250; J2405; J2704; J3010; J3490